=== PATIENT | female | born 1985 | race Caucasian/White ===

== ENCOUNTER 2018-07-04 17:00 | Emergency (ER) | payer BC ==
[~2018-07-04] VITALS: Ht 165.1 cm; Wt 99.8 kg
[2018-07-04] MEDS ORDERED: XARELTO10 MG (17:10)
== END 2018-07-04 18:30 | disposition home or self-care (01) ==
LOC: ER 17:00
DX: S86.911A Strain of unspecified muscle(s) and tendon(s) at lower leg level, right leg, initial encounter (principal); X58.XXXA Exposure to other specified factors, initial encounter
CPT/HCPCS: 93971; 99283-25